=== PATIENT | female | born 1980 | race Caucasian/White ===

== ENCOUNTER 2016-12-22 01:40 | Emergency (ER) | payer BC ==
[~2016-12-22] VITALS: Ht 160 cm; Wt 68.2 kg
[2016-12-22] MEDS ORDERED: LIALDA 1.2 GM1.2 GM PO (01:53)
[2016-12-22] MEDS ORDERED: CANASA 1000MG1000 MG RC (01:54)
[2016-12-22] MEDS ORDERED: PROTONIX40 MG/Pack PO (01:55)
[2016-12-22] MEDS ORDERED: CYCLOBENZAPRINE10 M1 PO (04:13)
[2016-12-22 04:26] VITALS: BP 131/81
[2016-12-22] MEDS ORDERED: DIFLUCAN150 M1 PO (05:16)
== END 2016-12-22 04:26 | disposition home or self-care (01) ==
LOC: ED 01:40
DX: S30.1XXA Contusion of abdominal wall, initial encounter (principal); S39.011A Strain of muscle, fascia and tendon of abdomen, initial encounter; B37.49 Other urogenital candidiasis; X58.XXXA Exposure to other specified factors, initial encounter; K21.9 Gastro-esophageal reflux disease without esophagitis; K52.9 Noninfective gastroenteritis and colitis, unspecified
CPT/HCPCS: J1885; J2360

== ENCOUNTER → 2016-12-27 | Outpatient (CLI) | payer BC ==
[2016-12-22 04:26] VITALS: BP 131/81
[~2016-12-27] MED LIST: CANASA 1000MG1000 MG RC; CYCLOBENZAPRINE10 M1 PO; DIFLUCAN150 M1 PO; LIALDA 1.2 GM1.2 GM PO; PROTONIX40 MG/Pack PO
== END ==
LOC: RAD 07:22
DX: R10.813 Right lower quadrant abdominal tenderness (principal); R19.09 Other intra-abdominal and pelvic swelling, mass and lump

== ENCOUNTER → 2017-01-30 | Outpatient (REF) | LOC: LAB 10:05 | DX: K21.9 Gastro-esophageal reflux disease without esophagitis (principal); L73.2 Hidradenitis suppurativa; K52.9 Noninfective gastroenteritis and colitis, unspecified ==

== ENCOUNTER → 2017-05-24 | Outpatient (CLI) | payer BC ==
[2017-05-24 09:34] LABS: EOS # 0.1 (0.04-0.40); EOS % 1.6 % (1.0-5.0); HEMATOCRIT 39.7 % (37.0-47.0); HEMOGLOBIN 12.7 g/dL (12.5-16.0); LYMPH# 1.1 (1.50-4.00); MEAN CELL VOLUME 94 fl (78-100); MEAN CORPUSCULAR HEMOGLOBIN 30 pg (27-31); MEAN CORPUSCULAR HGB CONC 32 g/dL (33-37); MONO # 0.5 (0.20-0.80); NEU # 3.8 (1.40-6.50); PLATELET COUNT 184 K/mm3 (130-400); RED BLOOD COUNT 4.24 M/mm3 (4.10-5.30); RED CELL DISTRIBUTION WIDTH 12.3 % (11.5-14.5); WHITE BLOOD COUNT 5.5 K/mm3 (4.8-10.8)
[2017-05-24 10:29] LABS: BUN/CREATININE RATIO 20.3 (6.0-26.0); TOTAL BILIRUBIN 0.5 mg/dL (0.2-1.3); TOTAL PROTEIN 7.1 g/dL (6.3-8.2)
[2017-05-24 10:53] LABS: URINE MUCUS PRESENT (NOT PRESENT); URINE WBC 0-1 /hpf (0-3)
== END ==
LOC: LAB 09:15 → EDSTATUS 11:29
PROVIDERS: Nurse Practitioner Family
DX: R10.9 Unspecified abdominal pain (principal); R31.9 Hematuria, unspecified; R53.81 Other malaise

== ENCOUNTER → 2017-05-25 | Outpatient (CLI) | payer BC | LOC: RAD 10:20 | DX: K59.00 Constipation, unspecified (principal) | CPT/HCPCS: Q9967 ==

== ENCOUNTER → 2017-12-26 | Outpatient (CLI) | payer BC | LOC: RAD 07:42 | DX: R51 Headache (principal) ==

== ENCOUNTER → 2018-01-02 | Outpatient (CLI) | payer BC | LOC: RAD 07:39 | DX: M48.02 Spinal stenosis, cervical region (principal); M50.323 Other cervical disc degeneration at C6-C7 level ==

== ENCOUNTER → 2020-03-16 | Outpatient (CLI) | payer BC | LOC: RAD 08:30 | DX: M50.20 Other cervical disc displacement, unspecified cervical region (principal); R59.0 Localized enlarged lymph nodes ==

== ENCOUNTER → 2020-12-22 | Outpatient (REF) | LOC: LAB 08:38 | DX: Z00.00 Encounter for general adult medical examination without abnormal findings (principal); K52.9 Noninfective gastroenteritis and colitis, unspecified ==

== ENCOUNTER → 2024-02-13 | Outpatient (CLI) | payer BC | LOC: MAMMO 08:18 | DX: Z12.31 Encounter for screening mammogram for malignant neoplasm of breast (principal) ==